=== PATIENT | male | born 1975 | race Caucasian/White ===

== ENCOUNTER 2018-05-19 14:05 | Inpatient (IN) | payer OTHER, SELFPAY ==
[2018-05-19] MEDS ORDERED: Acetaminophen 500 MG TAB PO SCH ×2 (17:00→18:00)
[2018-05-19] MEDS ORDERED: hydrALAZINE 20 MG/ML VIAL SLOW IVP PRN (17:00)
[2018-05-19] MEDS ORDERED: traMADol HCl 50 MG TAB PO PRN ×2 (17:00)
[2018-05-19] MEDS ORDERED: Ondansetron ODT 4 MG TAB PO PRN (17:00)
[2018-05-19] MEDS ORDERED: Ondansetron HCl/PF 4 MG/2 ML Vial IVP PRN (17:00)
[2018-05-19] MEDS ORDERED: Dextrose 5% in Water 1,000 ML IV PRN (17:00)
[2018-05-19] MEDS ORDERED: Acetaminophen 1,000 MG in Premix Bag 1 BAG IVPB SCH (17:00)
[2018-05-19] MEDS ORDERED: Sodium Chloride 0.9% 1,000 ML IV SCH (17:00)
[2018-05-19] MEDS ORDERED: Dextrose 50% Abboject 50 ML SYRINGE SLOW IVP PRN (17:00)
[2018-05-19] MEDS ORDERED: Rib Fracture Protocol PO SCH (17:00)
[2018-05-19] MEDS ORDERED: Ketorolac Tromethamine 30 MG/ML VIAL ONE (17:18)
--- NOTE | 2018-05-19 17:49 | HP ---
DATE OF ADMISSION: 05/19/2018 REQUESTING PHYSICIAN: [facility], Dr. Senait Jeffries. ATTENDING SURGEON: Dr. Tomlinson. CONSULTATIONS: Neurosurgery, Dr. Nicole and Orthopedics, Dr. Tolentino. HISTORY OF PRESENT ILLNESS: The patient is a 43-year-old man who was reportedly drinking l ast night before and after the [employer] game. He reportedly fell down approximately 7 stairs, hitti ng his left chest, back and scalp. The patient was able to get himself back to his bed and he lay do wn. When he woke up, he had significant pain and friends recommended that he go to the hospital to h ave his scalp laceration evaluated, so the patient took himself to [facility] ER where he underwent evaluation and examination and was noted to have multiple displaced left-sided rib fractur es, left clavicle fracture, a scalp laceration and a C7 facet fracture, at which time he was transfer red to our facility for higher level of care and evaluation by Orthopedics and Neurosurgery. ALLERGIES: None. CURRENT MEDICATIONS: None. PAST SURGICAL HISTORY: None. FAMILY MEDICAL HISTORY: Hypertension. SOCIAL HISTORY: Patient is a associate financial analyst. He lives in [place] with his and child. He denies tobacco use. Drinks 1-2 beers a day. Denies drug use. REVIEW OF SYSTEMS: Ten-point review of systems negative, unless otherwise stated. PHYSICAL EXAMINATION: VITAL SIGNS: Blood pressure 140/89, heart rate 79, respirations 16, oxygen saturation 100% on room a ir. GENERAL: Patient is resting comfortably in bed. He is awake, alert, and oriented x3. [place] coma scale is 15. HEENT: The patient has a laceration which has been repaired with multiple mandeep on the left pariet al aspect of his scalp. Pupils are PERRLA. Extraocular motion intact. PERRLA bilaterally. Ears ar e atraumatic without discharge. Nose is atraumatic without discharge. Oropharynx is clear. NECK: Immobilized in a cervical collar. His trachea is midline. There is no JVD. CHEST: Clear to auscultation with moderate inspiratory and expiratory effort, which is limited by hi s pain. The patient is markedly tender, left greater than right chest wall. HEART: Regular rate and rhythm. ABDOMEN: Soft, flat and nontender with active bowel sounds. EXTREMITIES: Neurovascularly intact x4. BACK: Tender to palpation on the left posterior chest consistent with his fractures. LABORATORY DATA: White blood cell count 13.0, hemoglobin 13, hematocrit 36.3, platelets 300. Sodium 130, potassium 4.5, CO2 99, glucose 120, BUN 10, creatinine 0.8. LFTs are unremarkable. INR is les s than 0.9. RADIOGRAPHIC FINDINGS: CTA of the head and neck show no evidence of vascular injury, multiple verteb ral and rib fractures, specifically right superior facet of C7, mildly displaced fracture of the spin ous process of T1 and fractures of the left second through fifth ribs are noted. CT of the abdomen a nd pelvis with IV contrast again shows the C7 fracture of the lateral left clavicle and 1st through 1 2th rib fractures several in multiple places. There was also noted to be very minimal pneumothorax a nd bilateral pulmonary contusions. Abdomen and pelvis are unremarkable for acute findings. Plain ra diographs of the left clavicle show fracture of the distal clavicle. Three views of the left shoulde r again show the same. Two views of the chest show mild left pleural effusion, multiple left rib fra ctures and pulmonary contusions. CT of the brain shows a left frontal scalp laceration/hematoma and mid frontal scalp paranasal hematoma. CT of the C-spine shows the acute displaced fracture of the ri ght superior facet at C7, right first rib fracture, left transverse process fracture of C7 and displa den fractures of first, second, and third left ribs. ASSESSMENT AND PLAN: 1. Status post fall. 2. C7 unilateral facet fracture. 3. C7 transverse process fracture. 4. T1 spinous process fracture. 5. Left ribs 1 through 12 posterior lateral fractures. 6. Left anterior ribs 3 through 7. 7. Right first rib fracture. 8. Small left pneumothorax. 9. Small left hemothorax. 10. Scalp laceration. 11. Facial laceration. Plan will be to admit the patient to the surgical floor for the pedal pathway of the rib fracture pro tocol. The patient will have pulmonary toilet, gastritis and mechanical DVT prophylaxis. The patien t's lacerations have been repaired at the [facility]. The evaluation, examination, laboratory a nd radiographic findings were reviewed with Dr. Tomlinson who saw the patient on the surgical floor.
[2018-05-19] MEDS: traMADol HCl 50 MG TAB PO SCH (18:00)
[2018-05-19] MEDS ORDERED: Ibuprofen 800 MG TAB PO SCH (18:00)
[2018-05-19 19:32] VITALS: BMI 29.5
[2018-05-19] MEDS: Acetaminophen 500 MG TAB PO SCH (21:32)
[2018-05-19] MEDS: Famotidine 20 MG TAB PO SCH (21:32)
[2018-05-19] MEDS: Cyclobenzaprine 10 MG TAB PO PRN (21:32)
[2018-05-19] MEDS: Gabapentin 300 MG CAP PO SCH (21:33)
[2018-05-20] MEDS: traMADol HCl 50 MG TAB PO SCH ×3 (00:18→13:10)
[2018-05-20] MEDS: Ibuprofen 800 MG TAB PO SCH ×3 (00:19→13:11)
[2018-05-20] MEDS: Acetaminophen 500 MG TAB PO SCH ×3 (03:18→14:58)
[2018-05-20 06:00] LABS: #Eosinphils 0.1 thou/uL (0.0-0.7); #Lymphocytes 1.3 thou/uL (1.20-3.40); #Monocytes 1.1 thou/uL (0.11-0.59); #Neutrophils 5.2 thou/uL (1.40-6.50); %Basophils 0.6 % (0.0-1.0); %Eosinophils 0.8 % (0.0-10.0); %Lymphocytes 16.8 % (21.0-51.0); %Monocytes 13.9 % (0.0-10.0); %Neutrophils 67.9 % (42.0-75.0); Hemoglobin 12.6 g/dL (14.0-18.0); Mean Corpuscular HGB CONC 34.6 g/dL (32.0-36.0); Mean Corpuscular Hemoglobin 32.3 pg (27.0-31.0); Mean Corpuscular Volume 93.3 fL (78.0-98.0); Mean Platelet Volume 7.6 fL (7.4-10.4); Platelet Count 251 thou/uL (130-400); RBC Distribution Width 11.5 % (11.5-14.5); Red Blood Cell (RBC) Count 3.89 mill/uL (4.70-6.10); White Blood Cell (WBC) Count 7.7 thou/uL (4.8-10.8)
[2018-05-20 06:11] LABS: Anion Gap 11 mmol/L (10-20); BUN (Urea Nitrogen) 9 mg/dL (8.9-20.6); Calc. Creatinine Clearance 176 mL/min (70-130); Calcium 8.7 mg/dL (7.8-10.44); Carbon Dioxide 24 mmol/L (22-29); Chloride 100 mmol/L (98-107); Estimated GFR-MDRD Greater than 90; Glucose 104 mg/dL (70-105); Sodium 131 mmol/L (136-145)
[2018-05-20] MEDS: Gabapentin 300 MG CAP PO SCH ×2 (08:10→14:59)
[2018-05-20] MEDS: Famotidine 20 MG TAB PO SCH (08:11)
[2018-05-20] MEDS: Cyclobenzaprine 10 MG TAB PO PRN (08:15)
--- NOTE | 2018-05-20 08:46 | RAD ---
SEMIUPRIGHT PORTABLE CHEST 1 VIEW: Date: 05/20/18 HISTORY: 43-year-old male with history of chest trauma. FINDINGS: There are multiple displaced left rib fractures. Minimal linear and parenchymal changes in the lung b ase with some right hemidiaphragm elevation, evidence for some bilateral subsegmental atelectasis. No evidence for significant pneumothorax. Displaced spiral fracture of the distal left clavicle. IMPRESSION: Numerous displaced left rib fractures. Displaced lateral left clavicle fracture. Right hemidiaphragm elevation. Linear and parenchymal changes in the lung bases, most evident for subsegmental atelectasi s. POS: OFF
[2018-05-20] MEDS ORDERED: Polyethylene Glycol 3350 17 GM Packet PO SCH (09:00)
--- NOTE | 2018-05-20 10:57 | PRG ---
DATE OF SERVICE: 05/20/2018 I personally interviewed and examined the patient, reviewed imaging and agree with documentation of Yevgeniy Feliz PA-C dated 05/20/2018. Briefly Ramez Mota is a 43-year-old gentleman who was in town over the weekend for attending a [employer] football game. He resides in [place]. Late at night following that ballgame on Sunday, he guerrero d a fall down the stairs and then got back into bed. When he woke up Sunday he had significant neck and posterior thoracic pain and [facility] imaging of the cervi li spine revealed a fracture of the superior articular process of C7, the transverse proc ess and the superior portion of the articular process and part of the pedicle from the rest of that v ertebral segment. A T1 spinous process fracture was noted, but it appears old. Rib fractures were n oted as well and for those reasons he was transferred to [facility] where he was admitted by the Trauma Service. He has been neurologically intact and in a collar overn ight. I am seeing him in his hospital room this morning. He has good strength in the deltoid, the biceps, the triceps, the wrist extensors, the finger extensors, and interossei on both sides. I do not find any dermatomal sensory loss. The right middle finger is swollen from injury, but he still has good s ensation all the way out to the tips. I reviewed CT imaging. A CT angiogram was performed of the cervical and intracranial vessels and I d o not see any dissection. CT scan cervical spine shows the findings noted above. The joint space of the facet joint on the right side at C6-7 is wider than the left and its widening is due to the frac ture of the superior articular process. I cannot tell if there is any ligamentous disruption there. Again, the T1 spinous process fracture (____) is old. I told Mr. Mota he has about a 50% chance of this healing on its own without surgical intervention . If surgery was performed, a C6-7 ACDF is a fairly tolerable operation. He would like to try to he al this without surgery and he lives in [place] so he will follow up for 1 week x-ray, a 3 week x-ray and a 2 month x-ray, seems too disruptive to his . He asked for a referral to an [place] neurosur frankien. I know a neurosurgeon at [facility] name Roosevelt Lee, his office telephone number is [phone]. He can contact Dr. Lee office to see if they can follow up for his lateral mass fracture of C7. Otherwise, they can contact our office at [phone] and asks for Светлана to schedule an appointment with us as outlined above. The patient will need a [place] collar for showers and the current [place] J type collar can be us ed the rest of the time. He should remain in this collar for 2 months if we are going to give this t he best chance to heal without surgery.
[2018-05-20 11:37] VITALS: BP 108/70; TEMP 97.8
--- NOTE | 2018-05-20 12:03 | CON ---
DATE OF CONSULTATION: 05/20/2018 HISTORY OF PRESENT ILLNESS: Mr. Mota is a 43-year-old male who reports that he was drinking the n ight of the [employer], Sunday night, went to bed. He states that he got up to go use the rest room at approximately 3:30 and instead of getting into the bathroom, he fell down 6-7 stairs. He sta madelyn that he hit his chest, back and his scalp. The patient states that he got himself up and back in to bed, did not realize that he had hurt himself so badly. His friends woke up, found some blood on the floor and then they decided that he needed to go to evaluation at the [facility] ER. During the evaluation at the ER there were multiple left-sided rib fractures, a clavicle fracture, a scalp fracture and a C7 lateral mass fracture. They decided to transfer to [facility]urg jovita is evaluating Mr. Mota for his C7 fracture. At this time the patient is resting comfortably i n his hospital bed. He has a well-fitting [place] collar on. He denies any radicular pain in the uppe r or lower extremities. He denies any numbness or tingling and is able to move all 4 extremities wel l. The patient states that he has some pain due to his ribs when he breathes and mild pain in his ne ck. The patient denies any headache. REVIEW OF SYSTEMS: The patient denies any fever or chills. Denies any changes in vision or change i n hearing, no difficulty swallowing, no sore throat, no chest pain, no shortness of breath, no abdomi nal pain, no nausea or vomiting, no changes in bowel or bladder. No constipation or diarrhea. No nu mbness or tingling or headache. PAST MEDICAL HISTORY: The patient states that he has been diagnosed with hypertension; however, he i s not being treated for it, not taking medications. ALLERGIES: No known drug allergies. MEDICATIONS: The patient denies any medication. PAST SURGICAL HISTORY: The patient denies any surgeries. FAMILY HISTORY: Hypertension. 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 He denies any tobacco use. He drinks 4 beers a day. Denies any illicit drug use. PHYSICAL EXAMINATION: VITAL SIGNS: Temperature 97.6, heart rate 88, respiratory rate 18, O2 sat 94% on room air, blood pre ssure 120/78. GENERAL: The patient is alert and oriented. He is resting comfortably in his bed. He is afebrile a nd nontoxic appearing. HEENT: Head is normocephalic, atraumatic. He does have a laceration on posterior aspect of his scal p which has been closed with mandeep. Pupils are equal, round, reactive to light. Extraocular movem ents are intact. Hearing is intact. Moist mucous membranes. NECK: The patient has tenderness at C7 spinous process with right laterally towards the transverse p rocess. RESPIRATORY: Normal work of breathing. CARDIOVASCULAR: Regular rate and rhythm. Normal S1 and S2. NEUROLOGIC: Motor; extremities; the patient is moving all 4 extremities well, he has 5/5 strength in the deltoid, biceps, triceps, wrist flexion, hip flexion, knee flexion and extension, dorsiflexion, plantar flexion. NEUROLOGIC: The patient is alert and oriented to person, place and time. Cranial nerves II through XII are intact. There are no motor or sensory deficits noted. He has normal strength in bilateral u pper extremities and lower extremities. IMAGING: Imaging was done at [facility] ER. The disk shows C7 right articular suspensio n fracture with mild displacement between allowing some more space, there is a T1 process fracture no silverio along with multiple rib fractures. PLAN: Mr. Mota has sustained a C7 right side rails articular suspension fracture with mild displa cement. There is approximately 50% chances of healing on its own. The patient may need surgical int ervention. The patient lives in the [place] area and would like to allow this to heal on its own give n a chance and have proper followup with [facility]. The patient should wear a [place] J lili ar for all times, a [place] collar should be available for showers and his follow up if he would like to see our office, we have given him information to reach out to an [facility].
--- NOTE | 2018-05-20 22:03 | DIS-2 ---
DATE OF ADMISSION: 05/19/2018 DATE OF DISCHARGE: 05/20/2018 RESIDENT: Christie Machuca MD ADMITTING ATTENDING: Merrill Tomlinson DO. DISCHARGE ATTENDING: Chris Wallace M.D. CONSULTATIONS: 1. Neurosurgery, Christo Nicole M.D. 2. Orthopedics, Eber Tolentino M.D. PROCEDURES: Chest x-ray on 05/20/2018, significant for numerous displaced left rib fractures, a displaced lateral left clavicle fracture and right hemidiaphragm elevation. Some subsegmental atelectasis noted. No evidence for significant pneumothorax. PRIMARY DISCHARGE DIAGNOSES: 1. C7 unilateral facet fracture. 2. C7 transverse process fracture. 3. T1 spinous process fracture. 4. Left ribs 1 through 12 posterior lateral fractures. 5. Right first rib fracture. 6. Small left pneumothorax. 7. Small left hemothorax. 8. Scalp laceration, status post repair. 9. Facial laceration, status post repair. SECONDARY DIAGNOSIS: None. DISCHARGE MEDICATIONS: 1. Acetaminophen 1000 mg p.o. q.6 hours for pain. 2. Gabapentin 300 mg p.o. t.i.d. for pain. 3. Ibuprofen 800 mg p.o. q.6 hours for pain. 4. MiraLax 17 grams packet p.o. daily. 5. Tramadol 100 mg p.o. q.6 hours p.r.n. for pain. 6. Metaxalone 800 mg p.o. q.i.d. p.r.n. for muscle spasms. DISCONTINUED MEDICATIONS: None. HOSPITAL COURSE: The patient is a 43-year-old gentleman with no significant past medical history who was directly admitted from [facility] ER after presenting there and being found to have multiple traumatic injuries. The patient had reportedly been drinking the night before at the [employer] and reportedly fell down approximately 7 stairs hitting his left chest, back, and scalp. He went to bed that night, but when he woke up, he had significant pain and a significant laceration on his scalp so his friends recommended that he go to the hospital to be evaluated. At the [facility] ER, the patient was noted to have multiple displaced left-sided rib fractures, a left clavicle fracture, a scalp and chest laceration , and a C7 facet fracture, at which time he was transferred to [facility] for higher level of care and evaluation by both Orthopedics and Neurosurgery. On presentation to [facility], the patient's vital signs were noted to be within normal limits and he was resting comfortably in bed with a [place] coma scale of 15. Routine labwork was obtained, which was significant for a slightly decreased hemoglobin level of 12.6, but was otherwise all within normal limits. The patient was admitted to the Trauma Service overnight for pain control and Orthopedic Surgery and Neurosurgery were consulted to come and evaluate the patient the following morning. The patient was started on scheduled p.o. Tylenol, gabapentin, ibuprofen, and tramadol for pain control as well as cyclobenzaprine to take p.r.n. for muscle spasms. The following morning , the patient reported that his pain was well controlled and was evaluated by both Neurosurgery and Orthopedic Surgery, both of whom recommended nonoperative intervention. Dr. Nicole with Neurosurgery specifically recommended that the patient wear a [place] collar for showers and a [place] J type collar to be used the rest of the time. He recommended that the patient remain in the collar for 2 months to give him the best chance of healing without needing surgery. Dr. Nicole also recommended routine followup with Neurosurgery at 1 week, 3 weeks and 2 months post-injury to monitor his healing. Regarding his clavicular fracture, Orthopedic Surgery recommended a sling for comfort measures and stated that the patient did not require any operative intervention at this time. Regarding the patient's pneumothorax and hemothorax, a repeat chest x-ray was obtained the morning of discharge which revealed no significant pneumothorax or hemothorax, only some bibasilar atelectasis. The patient was therefore instructed to use incentive spirometry regularly and to move about as tolerated in order to prevent pneumonia and worsening of his atelectasis. However, after being noted to have his pain well controlled on p.o. pain medications and after being cleared by Neurosurgery and orthopedic surgery, the patient was cleared for discharge home with recommended follow up with his primary care physician by no later than a week from today for staple removal from his chest and forehead lacerations. DISPOSITION: Stable. DISCHARGE INSTRUCTIONS: 1. Location: Home. 2. Diet: Regular diet. 3. Activity as tolerated. 4. Followup: The patient was instructed to follow up with his primary care provider within 1 week for staple removal. The patient was also instructed to follow up with Neurosurgery either here in [place] with Dr. Nicole or in [place] with a local neurosurgeon at 1 week, 3 weeks and 2 months post-injury to monitor healing of C7 fracture. JOSE
== END 2018-05-20 15:55 | disposition home or self-care (01) | DRG 184 ==
LOC: SJJU 16:02
PROVIDERS: ADMIT Surgery; ATTEND Surgery
DX: S22.42XA Multiple fractures of ribs, left side, initial encounter for closed fracture (principal); S12.600A Unspecified displaced fracture of seventh cervical vertebra, initial encounter for closed fracture; S22.019A Unspecified fracture of first thoracic vertebra, initial encounter for closed fracture; J93.9 Pneumothorax, unspecified; J94.2 Hemothorax; S42.032A Displaced fracture of lateral end of left clavicle, initial encounter for closed fracture; W10.8XXA Fall (on) (from) other stairs and steps, initial encounter
CPT/HCPCS: 36415; 71045; 80048; 85025; 94640; G8978-GP-CK; G8979-GP-CK; G8980-GP-CK; J1885; J7620